=== PATIENT | female | born 1960 | race Caucasian/White ===

== ENCOUNTER 2016-12-23 05:35 | Emergency (ER) | payer OTHER ==
[~2016-12-23] VITALS: Ht 180.3 cm; Wt 89.5 kg
[2016-12-23] MEDS ORDERED: CLEOCIN300 MG PO (06:27)
[2016-12-23 06:35] VITALS: BP 138/83
== END 2016-12-23 06:36 | disposition home or self-care (01) ==
LOC: EME 05:35 → EXP 05:35 → EME 06:36
DX: L03.116 Cellulitis of left lower limb (principal); E03.9 Hypothyroidism, unspecified
CPT/HCPCS: 99281; 99283